=== PATIENT | female | born 1960 | race African-American/Black ===

== ENCOUNTER 2024-08-01 09:16 | Outpatient (CLI) | payer OTHER | END 2024-08-01 09:17 | disposition home or self-care (01) | LOC: CSHCP 09:16 | PROVIDERS: ATTEND Student in an Organized Health Care Education/Training Program | DX: R05.3 Chronic cough (principal) | CPT/HCPCS: 94060; 94664; 94726; 94729; 94760 ==

== ENCOUNTER 2025-02-23 10:35 | Outpatient (CLI) | payer OTHER | END 2025-02-23 10:36 | disposition home or self-care (01) | LOC: CSHCT 10:35 | PROVIDERS: ATTEND Student in an Organized Health Care Education/Training Program | DX: F17.210 Nicotine dependence, cigarettes, uncomplicated (principal) | CPT/HCPCS: 71271 ==